=== PATIENT | female | born 1990 | race Caucasian/White ===

== ENCOUNTER → 2016-10-13 | Outpatient (CLI) | payer OTHER ==
--- NOTE | 2016-10-17 17:39 | Diagnostic Imaging Report ---
INDICATION: survey. FINDINGS: There is single live intrauterine fetus present. Fetus is currently vertex though active. heart rate of 140 beats per minute. Placenta is anterior without evidence of abruption or previa. The amniotic fluid index is normal at 11 cm. anatomical survey appears normal with the exception the kidneys are not well visualized on today's exam. The bladder is distended however and appears normal. Biometric measurements are BPD 4.0 cm, head circumference 14.91 cm, abdominal circumference 12.75 cm, femur length 2.79 cm. Cervical length is 3.8 cm. IMPRESSION: An 18 weeks 3 days live intrauterine by ultrasound. No abnormalities were demonstrated. The sonographic estimated date of delivery is 03/13/2017. Dictated by: Dictated on workstation # [id number]
== END ==
LOC: RAD 14:28
PROVIDERS: ATTEND Family Medicine
DX: Z36 Encounter for antenatal screening of mother (principal)
CPT/HCPCS: 76805